=== PATIENT | male | born 1955 | race Caucasian/White ===

== ENCOUNTER → 2017-06-19 | Outpatient (CLI) | payer OTHER | LOC: COL.PUL 13:00 | DX: R06.2 Wheezing (principal); R06.09 Other forms of dyspnea ==

== ENCOUNTER 2020-12-07 07:49 | Day surgery (SDC) | payer OTHER ==
[~2020-12-07] VITALS: Ht 177.8 cm; Wt 147.3 kg
[2020-12-07] VITALS (9 sets, daily range): BP systolic 110–145; BP diastolic 63–85; PULSE 61–77; TEMP 98.3
[2020-12-07] MEDS ORDERED: BYSTOLIC20 MG PO (09:03)
[2020-12-07] MEDS ORDERED: ZESTRIL 20MG TA20 MG PO (09:03)
[2020-12-07] MEDS ORDERED: K-DUR 10 MEQ T10 MEQ PO (09:04)
[2020-12-07] MEDS ORDERED: HYGROTON 2525 MG/TAB (09:04)
[2020-12-07] MEDS ORDERED: OZEMPIC0.25 MG/0. SQ (09:05)
[2020-12-07] MEDS ORDERED: GLUCOPHAGE1000 MG PO (09:05)
[2020-12-07] MEDS ORDERED: CRESTOR40 MG PO (09:06)
[2020-12-07] MEDS ORDERED: ASPIRIN E.C. 8181 MG PO (09:07)
[2020-12-07] MEDS ORDERED: EPA FISH OIL1 SGL PO (09:07)
[2020-12-07] MEDS ORDERED: NORVASC 10MG10 MG PO (09:07)
[2020-12-07] MEDS ORDERED: CENTRUM SILVER1 TAB (09:08)
[2020-12-07] MEDS ORDERED: ZYRTEC 10MG10 MG PO (09:08)
[2020-12-07] MEDS ORDERED: FISH OIL CONCEN1 SG2 PO (09:09)
[2020-12-07 09:11] LABS: HEMATOCRIT 44.8 % (42.0-52.0); HEMOGLOBIN 14.9 g/dl (13.5-18.0); MEAN CELL VOLUME 83 fl (80.0-100.0); MEAN CORPUSCULAR HEMOGLOBIN 28 pg (27.0-31.0); MEAN CORPUSCULAR HGB CONC 33 g/dl (33.0-37.0); MEAN PLATELET VOLUME 10.1 fl (7.4-10.4); PLATELET COUNT 212 K/mm3 (130-400); REDCELL DISTRIBUTION WIDTH-CV 14.9 % (11.5-14.5)
[2020-12-07 09:19] LABS: INR 1.1 (0.8-3.0); PROTHROMBIN TIME 12.4 SECONDS (9.7-12.8)
[2020-12-07 10:00] LABS: CALCIUM 8.9 mg/dL (8.4-10.2); CREATININE, serum 0.83 (0.66-1.25); POTASSIUM 3.6 mmol/L (3.4-5.0)
--- NOTE | 2020-12-07 11:05 | NUR ---
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
--- NOTE | 2020-12-07 11:45 | NUR ---
con't same, has no c/o
--- NOTE | 2020-12-07 12:30 | NUR ---
PT ATE LUNCH, REVIEWED DISCHARGE INST. WITH PT ON MODEREATE SEDATION, FOLLOWUP AT OFFICE IN 2 WEEKS, ALSO REVIEWED CARE OF RADIAL SITE AND PRECAUTIONS WITH SITE WITH VERBAL UNDERSTANDING.
--- NOTE | 2020-12-07 13:05 | NUR ---
RELEASED AIR FROM [facility] AT A TIME OVER 20 MIN WITH NO BLEEDING OR SWELLING NOTED, BANDAID OVERSITE, PT UP TO B/R TO VOID, GAIT STEADY.
--- NOTE | 2020-12-07 14:00 | NUR ---
IV D'CD INTACT, PT UP IN ROOM DRESSED, DISCHARGED VIA W/C TO CAR WITH
== END 2020-12-07 14:00 | disposition home or self-care (01) ==
LOC: COL.CAR 07:49
PROVIDERS: Internal Medicine Cardiovascular Disease
DX: R94.39 Abnormal result of other cardiovascular function study (principal); I10 Essential (primary) hypertension; I77.810 Thoracic aortic ectasia; E78.5 Hyperlipidemia, unspecified; G47.33 Obstructive sleep apnea (adult) (pediatric); R73.03 Prediabetes; E66.9 Obesity, unspecified; Z79.899 Other long term (current) drug therapy; Z20.822 Contact with and (suspected) exposure to COVID-19; Z88.0 Allergy status to penicillin; Z79.82 Long term (current) use of aspirin; Z79.84 Long term (current) use of oral hypoglycemic drugs; Z68.42 Body mass index [BMI] 45.0-49.9, adult
CPT/HCPCS: J1644; J2250; J3010; J7030; Q9967